=== PATIENT | female | born 1955 | race Caucasian/White ===

== ENCOUNTER 2018-01-16 12:52 | Emergency (ER) | END 2018-01-16 15:28 | disposition home or self-care (01) ==

== ENCOUNTER 2018-08-04 05:26 | Day surgery (SDC) | payer OTHER ==
[2018-08-03 10:14] VITALS: Ht 149.9 cm; Wt 83.0 kg
[2018-08-04] VITALS (12 sets, daily range): BP systolic 106–151; BP diastolic 50–64; PULSE 56–62; RESP 15–25
[~2018-08-04] VITALS: Ht 149.9 cm; Wt 83.0 kg
[~2018-08-04 05:26] MED LIST: IBUP-1542 PO; TRAM50TA2 PO
[2018-08-04] MEDS ORDERED: DESFLURANE 15 MIN ONE (07:00)
[2018-08-04] MEDS ORDERED: LACTATED RINGER'S 1,000 ML IV SCH (07:00)
--- NOTE | 2018-08-04 07:13 | PREAC ---
Date/Time of Note Date/Time of Note DATE: 08/04/18 TIME: 07:12 Anesthesia Eval and Record Evaluation Time Pre-Procedure Interview DATE: 08/04/18 TIME: 07:12 Age 63 Sex female NPO: 8 hrs Preoperative diagnosis vaginal bleed Planned procedure D&C, LEEP Past Medical History Past Medical History: Includes Cardio: HTN GI: Obesity Surgery & Anesthesia Issues No known issue Meds Anticoagulation: No Beta Kranthi within 24 hr: No Reason Beta Kranthi not given: Pt. not on B-Kranthi Active Scripts Tramadol HCl (Tramadol HCl) 50 Mg Tablet, 50 MG PO Q4 PRN for PAIN, #15 TAB Prov:TRACEY ALONSO MD 01/16/18 Ibuprofen* (Motrin*) 600 Mg Tab, 600 MG PO Q6, #20 TAB Prov:TRACEY ALONSO MD 01/16/18 Current Medications Lactated Ringer's 1,000 ml @ 30 mls/hr Q24H IV ; Start 08/04/18 at 07:00; Stop 08/05/18 at 16:19 Meds reviewed: Yes Allergies Coded Allergies: No Known Allergy (Unverified , 01/16/18) Allergies Reviewed: Yes Labs/Studies Labs Reviewed: Reviewed by anesthesiologist Blood Bank Test 08/03/18 10:29 Antibody Screen NEGATIVE Blood Type O POSITIVE test: Negative Pre-procedure Exam Last vitals Vital Signs Date Temp Pulse Resp B/P (MAP) Pulse Ox O2 O2 Flow FiO2 Time Delivery Rate 08/04/18 97.8 57 18 151/64 97 Room Air 06:52 (93) Airway: Adequate mouth opening, Adequate thyromental dist Mallampati: Mallampati II Teeth: Normal Lung: Normal Heart: Normal ASA Physical Status ASA physical status: 2 Emergency: None Planned Anesthetic General/MAC: ETT Pre-operative Attestations Prior to commencing anesthesia and surgery, the patient was re-evaluated, there was verification of: *The patient's identity *The results of appropriate recent lab work and preoperative vital signs *The above evaluation not changing prior to induction *Anesthetic plan, risk benefits, alternative and complications discussed with patient/family; questions answered; patient/family understands, accepts and wishes to proceed. ALLYSON MROEIRA August 04, 2018 07:13
[2018-08-04] MEDS ORDERED: AMLO5TAB4 PO (07:15)
[2018-08-04] MEDS ORDERED: LOSA50TA14 PO (07:15)
[2018-08-04] MEDS ORDERED: PROPOFOL 20 ML ONE (07:20)
[2018-08-04] MEDS ORDERED: FENTAnyl 50 MCG/ML VIAL ONE (07:20)
[2018-08-04] MEDS ORDERED: LIDOCAINE 100 MG SYRINGE ONE (07:20)
[2018-08-04] MEDS ORDERED: SUCCINYLCHOLINE CHLORIDE 100 MG/5 ML SYG IV ONE (07:20)
[2018-08-04] MEDS ORDERED: ROCURONIUM 50 MG INJ ONE (07:20)
--- NOTE | 2018-08-04 07:25 | PREOPHP ---
DATE OF ADMISSION: 08/04/2018 HISTORY OF PRESENT ILLNESS: This is a 63-year-old lady, 5, para 4 with 1 ectopic . Her last normal menstrual period was in 2009. She was admitted for LEEP and D and C. This patient had a positive HPV with low grade MUNIR. The colposcopy biopsy showed normal. She also has endometria l thickening. Because of no correlation between the Pap smear and her biopsies, she was admitted for the above procedure. Also, because of the endometrial thickening, she will have a D and C as well. The procedures were explained to the patient and she understood everything totally. The risks, bene fits and alternatives were discussed with her as well. PAST MEDICAL HISTORY: No history of TB or asthma. History of high blood pressure. ALLERGIES: NO ALLERGIES. PAST SURGICAL HISTORY: She had arm surgery. She had two C-sections. FAMILY HISTORY: Grandfather on mother's side have high blood pressure. GYNECOLOGIC HISTORY: She had menarche at the age of 16, every 28 days interval, 3 to 4 days duration , and moderate in amount. OBSTETRICAL HISTORY: She is 5, para 4. She had three normal deliveries and one . She had one ectopic . REVIEW OF SYSTEMS: CARDIOVASCULAR: No chest pains. RESPIRATORY: No cough. GASTROINTESTINAL: No diarrhea. No vomiting. GENITOURINARY: No dysuria. PHYSICAL EXAMINATION: GENERAL: Reveals a conscious, coherent lady and in no acute distress. VITAL SIGNS: Her blood pressure 130/80, pulse rate 80 per minute, respirations 16 per minute. BREASTS, HEART AND LUNGS: Within normal limits. ABDOMEN: Soft and obese. PELVIC: Revealed the cervix to be firm, uterus of normal size, and adnexa were negative for masses. RECTAL: Confirmed the pelvic findings. EXTREMITIES: No pedal edema. ADMITTING DIAGNOSIS: Endometrial thickening, rule out endometrial hyperplasia and rule out cervical dysplasia. PLAN: The patient was planned to have the above procedure. Dictated By: ABHIJEET DE OLIVEIRA/DEYANIRA Conf#: [id number] DID#: [id number]
[2018-08-04] MEDS ORDERED: ALBUTEROL 0.083% (NEB) 2.5 MG/3 ML AMP HHN PRN (07:30)
[2018-08-04] MEDS ORDERED: MEPERIDINE 25 MG INJ IV PRN (07:30)
[2018-08-04] MEDS ORDERED: FENTAnyl 50 MCG/ML VIAL IV PRN ×2 (07:30)
[2018-08-04] MEDS ORDERED: DIPHENHYDRAMINE 50 MG INJ IV PRN (07:30)
[2018-08-04] MEDS ORDERED: ONDANSETRON 4 MG INJ IV PRN (07:30)
[2018-08-04] MEDS ORDERED: METOCLOPRAMIDE 10 MG INJ IV PRN (07:30)
[2018-08-04] MEDS ORDERED: HYDROmorphONE 1 MG/5 ML IV SYRINGE IV PRN ×3 (07:30)
[2018-08-04] MEDS ORDERED: SUGAMMADEX SODIUM 200 MG/2 ML VIAL IV ONE (07:36)
[2018-08-04] MEDS ORDERED: PROVENTIL HFA 6.7GM INHALER ONE (07:53)
--- NOTE | 2018-08-04 08:40 | SIPON ---
Date/Time of Note Date/Time of Note DATE: 08/04/18 TIME: 08:39 Operative Report Preoperative Diagnosis ENDOMETRIAL THICKENING R/O ENDOMETRIAL HYPERPLASIA R/O CERVICAL DYSPLASIA Postoperative Diagnosis ENDOMETRIAL THICKENING R/O ENDOMETRIAL HYPERPLASIA R/O CERVICAL DYSPLASIA Operation/Procedure Performed LEEP D&C Surgeon see signature line geriatric nurse assistant QUALITY ASSURANCE ENGINEER Anesthesia: general Estimated blood loss: minimal Transfusion Required none Specimen ECC [facility] SUCTION CURETTAGE Grafts/Implants none Complications none ABHIJEET CHOI MD August 04, 2018 08:40
[2018-08-04] MEDS ORDERED: ACETAMINOPHEN 325 MG TAB PO PRN (09:00)
--- NOTE | 2018-08-04 12:44 | PAC ---
Date/Time of Note Date/Time of Note DATE: 08/04/18 TIME: 12:44 Post-Anesthesia Notes Post-Anesthesia Note Last documented vital signs Vital Signs Date Temp Pulse Resp B/P (MAP) Pulse Ox O2 O2 Flow FiO2 Time Delivery Rate 08/04/18 98.0 56 16 131/63 97 Room Air 09:08 (85) Activity: WNL Respiratory function: WNL Cardiovascular function: WNL Mental status: Baseline Pain reasonably controlled: Yes Hydration appropriate: Yes Nausea/Vomiting absent: Yes ALLYSON MOREIRA August 04, 2018 12:44
--- NOTE | 2018-08-05 06:32 | OPR ---
DATE OF OPERATION: 08/04/2018 PREOPERATIVE DIAGNOSES: Rule out cervical dysplasia, endometrial thickening, rule out endometrial hy perplasia, no correlation between Pap smear and biopsy in the clinic. SURGEON: Abhijeet Perez MD COUNTER PROFESSIONAL: investment recovery technician. ANESTHESIA: General. ANESTHESIOLOGIST: Dr. Deepak De La O. OPERATION PERFORMED: LEEP and D and C. OPERATIVE TECHNIQUE: Under general anesthesia, the patient was prepped and draped in the usual fashi on for vaginal surgery. Pelvic exam under anesthesia revealed the cervix to be firm, uterus of abhijeet l size, and adnexa were negative for masses. Then, the heavy weight vaginal retractor was put in olinda ce and the anterior lip of the cervix was grasped with an Allis clamp. Then, the cervix was dabbed w ith Lugol's solution. The whole external os of the cervix did not take the Lugol's solution. Then, the loop was passed from left to right on the anterior lip of the cervix and from left to right on th e posterior lip of the cervix. A good amount of tissue was obtained. Another smaller loop was passe d up to the endocervical canal. A good amount of tissue was obtained. Endocervical curettage was do ne and a small amount of tissue was obtained. Endometrial curettage was done and a small amount of t issue was obtained. The site of the biopsy was cauterized with the ball cautery. Bleeders were chec ked, and there was no bleeding was noted after cauterization. A small piece of Surgicel was left at the site of the biopsy. The patient tolerated the procedure well. Estimated blood loss was minimal. Vital signs were stable during and after the procedure. Dictated By: ABHIJEET DE OLIVEIRA/NTS Conf#: [id number] DID#: [id number]
== END 2018-08-04 09:22 | disposition home or self-care (01) ==
LOC: SDS 05:26
PROVIDERS: ATTEND Obstetrics & Gynecology
DX: N72 Inflammatory disease of cervix uteri (principal)
CPT/HCPCS: 57522; 84702; 86850; 86900; 86901; 88305; J2001; J3010